=== PATIENT | female | born 1940 | race Caucasian/White ===

== ENCOUNTER 2022-09-14 01:22 | Inpatient (IN) | payer BC, OTHER ==
[~2022-09-14] VITALS: Ht 162.6 cm; Wt 56.7 kg
[2022-09-14 01:22] VITALS: BP_SYST 163
[~2022-09-14 01:22] MED LIST: CHOL100038 PO; ESOM40CA PO; IRON1CAP12 PO; LISI-209 PO
[2022-09-14] MEDS ORDERED: NACL 0.9% 1,000 ML IV ONE ×2 (01:30)
--- NOTE | 2022-09-14 01:32 | NUR ---
MD AT BEDSIDE WITH PATIENT FOR EVALUATION.
--- NOTE | 2022-09-14 01:37 | NUR ---
PT FROM HOME BIBA WITH C/O OF [facility]NCOPE EPISODE. PER EMT, PT WAS FOUND ON FLOOR BY FAMILY. PT DOES NOT REMEMBER PASSING OUT. HX OF DEMENTIA. PT DENIES PAIN AT THIS TIME. NO TRUAMA VISIABLE TO HEAD OR NECK. PT A&O X2, PERSON AND PLACE. SAFETY PRECAUTIONS IN PLACE AND CONNECTED TO MONITOR.
--- NOTE | 2022-09-14 01:40 | NUR ---
PT TO CT VIA GURNEY ACCOMPANIED BY RADIOLOGY AND EMT.
[2022-09-14 01:45] LABS: BASOPHILS % (AUTO) 0.4 % (0.0-2.0); EOSINOPHILS % (AUTO) 0.3 % (0.0-4.0); HEMATOCRIT 33.9 % (36-48); HEMOGLOBIN 11.7 g/dL (12.0-16.0); LYMPHOCYTES # (AUTO) 0.5 K/uL (1.0-5.5); LYMPHOCYTES % (AUTO) 7.8 % (20.5-51.5); MEAN CORPUSCULAR HEMOGLOBIN 33 pg (27-31); MEAN CORPUSCULAR HGB CONC 34 % (32-36); MEAN CORPUSCULAR VOLUME 97 fL (79.0-98.0); MONOCYTES % (AUTO) 14.8 % (1.7-9.3); NEUTROPHILS # (AUTO) 5.2 K/uL (1.8-7.7); NEUTROPHILS % (AUTO) 76.7 % (40.0-70.0); PLATELET COUNT (AUTO) 180 K/uL (130-430); RED BLOOD CELL COUNT(AUTO) 3.51 MIL/uL (4.2-6.2); RED CELL DISTRIBUTION WIDTH 13.8 % (9.0-15.0); WHITE BLOOD COUNT (AUTO) 6.7 K/uL (4.8-10.8)
--- NOTE | 2022-09-14 02:00 | NUR ---
PT BACK FROM RADIOLOGY VIA [facility] ACCOMPANIED BY STAFF.
[2022-09-14 02:06] LABS: ANION GAP 10 (5-15); CALCIUM 8.6 mg/dL (8.4-11.0); CHLORIDE 99 mmol/L (98-107); CREATININE 1.28 mg/dL (0.55-1.30); GLUCOSE 116 mg/dL (70-99); UREA NITROGEN, BLOOD 20 mg/dL (8-21)
[2022-09-14 02:13] LABS: ALANINE AMINOTRANSFERASE 13 U/L (12-78); ALBUMIN 3.7 g/dL (3.4-4.8); ASPARTATE AMINOTRANSFERASE 17 U/L (10-37); TOTAL BILIRUBIN 0.3 mg/dL (0.0-1.0)
--- NOTE | 2022-09-14 02:27 | NUR ---
COVID SWAB COLLECTED AND SENT TO LAB.
--- NOTE | 2022-09-14 03:09 | NUR ---
INFLUENZA SWAB COLLECTED AND SENT TO LAB.
--- NOTE | 2022-09-14 03:55 | NUR ---
PT MOVED FROM BED 2 TO BED 8 FOR NEGATIVE PRESSURE. SAFETY PRECAUTIONS IN PLACE AND CONNECTED TO MONITOR. TEMPORAL TEMP 100.0. MD MADE AWARE.
[2022-09-14] MEDS ORDERED: ACETAMINOPHEN 500 MG TABLET PO ONE (04:00)
[2022-09-14 04:03] LABS: BILIRUBIN,URINE NEGATIVE (NEGATIVE); BLOOD, URINE NEGATIVE (NEGATIVE); CLARITY/URINE CLEAR (CLEAR); COLOR,URINE YELLOW (YELLOW); GLUCOSE,URINE NEGATIVE (NEGATIVE); KETONES,URINE NEGATIVE (NEGATIVE); LEUKOCYTE ESTERASE ,URINE TRACE (NEGATIVE); NITRITE, URINE NEGATIVE (NEGATIVE); PROTEIN URINE NEGATIVE (NEGATIVE); UROBILINOGEN,URINE 0.2 (0.2-1.0)
[2022-09-14 04:09] LABS: BACTERIA,URINE None Seen /HPF (None Seen); MUCUS,URINE None Seen /LPF (None Seen); RBC,URINE 0-3 /HPF (0-3)
--- NOTE | 2022-09-14 04:32 | NUR ---
ATTEMPTED TO CONTACT SON FOR MEDICATION LIST. PHONE NUMBER ON FILE DOES NOT WORK.
[2022-09-14] MEDS ORDERED: ACETAMINOPHEN 325 MG TABLET PO PRN (04:45)
[2022-09-14] MEDS ORDERED: POTASSIUM CHLORIDE 20 MEQ in D5/0.45 NS 1,000 ML IV SCH (04:45)
--- NOTE | 2022-09-14 04:51 | NUR ---
Admit bed requested Patient will be admitted to care of Admitted to MS unit. Diagnosis Covid 19 Viral Infection Inpatient (Yes or No) yes Observation (Yes or No) no Orientation concerns or request close to nursing station (Yes or No) yes Covid Status positive On vent or bipap no Isolation requirements no Needs a sitter no From Home (Yes or if No enter name of facility) yes Requires Dialysis (Yes or No) no Med Rec Completed (Yes of No) pending
[2022-09-14] MEDS ORDERED: AZITHROMYCIN 500 MG/VIAL (ZITHROMAX) IV ONE (06:21)
[2022-09-14] MEDS: cefTRIAXone 1 GM IVPB PREMIX 50 ML IV SCH (06:32)
[2022-09-14] MEDS: AZITHROMYCIN 500 MG in NS 250 ML IV SCH (06:33)
--- NOTE | 2022-09-14 07:20 | NUR ---
report given to Arabella TAYLOR and Viktoriya TABARESN to assume all care. all questions and concerns addressed at this point.
--- NOTE | 2022-09-14 08:00 | NUR ---
Pt is restless and pacing room with diarrhea on thighs. Assisted pt to cleanse and use bedside commode. Pt reassured of admission status covid diagnosis. Pt is aaox2 with signs of dementia.
--- NOTE | 2022-09-14 09:00 | NUR ---
Pt blood pressure elevated 184/98 reported to admissions MD, medicated per MD order.
--- NOTE | 2022-09-14 09:15 | NUR ---
Pt ate 100 % reg diet , assisted to restroom. Pt with diarrhea related to Covid diagnosis.
[2022-09-14] MEDS: amLODIPine BESYLATE 10 MG TABLET PO SCH ×2 (09:20→12:47)
[2022-09-14] MEDS ORDERED: TRAM50TA2 PO (10:32)
[2022-09-14] MEDS ORDERED: DONE10TA4 PO (10:32)
[2022-09-14] MEDS ORDERED: SIMV-43 PO (10:32)
--- NOTE | 2022-09-14 10:32 | NUR ---
CONSULT ID COVID DR SAUER [phone] DR CADE CANAL DRIVER S/W LYNDSEY GARCIA
--- NOTE | 2022-09-14 10:42 | NUR ---
PT WAS W/C'D IN FROM ER WITH COVID+. SOB AND COUGH X 2 WKS. PT WAS ALERT AND AWAK X 2. UNABLE TO STATE DAY. PER PT REQUESTED, HER GRANDSON WAS CALLED BUT NO ONE PICKUP.
--- NOTE | 2022-09-14 11:21 | NUR ---
Patient will be admitted to [facility]. Admitted to MEDSURG unit. Will go to room 122. Belongings list completed. Complete and up to date summary report printed. SBAR report to be given at bedside with opportunity for questions.
--- NOTE | 2022-09-14 11:37 | NUR ---
Received very minimal report from BRANDON Bates, he was only able to tell me patient identifiers, pt. is covid + and that pt. has a chief complaint of sob, this was the only report Paulo gave. Pt. is confused, ambulating around the room, no signs of acute distress, fall precautions in place and attempted to educate on fall precautions but pt. is confused at baseline AOx2.
[2022-09-14] MEDS ORDERED: ASCORBIC ACID 500 MG TABLET PO ONE (12:00)
[2022-09-14] MEDS ORDERED: LOSARTAN POTASSIUM 50 MG TABLET (COZAAR) PO ONE (12:15)
[2022-09-14 12:41] VITALS: BP_SYST 167
[2022-09-14] MEDS: DECADRON 4 MG TABLET PO SCH (12:46)
[2022-09-14] MEDS: POTASSIUM CHLORIDE 20 MEQ in D5/0.45 NS 1,000 ML IV SCH (12:48)
[2022-09-14 12:50] VITALS: BP_SYST 167
[2022-09-14] MEDS ORDERED: HALOPERIDOL LACTATE 5 MG/ML VIAL IM ONE (13:30)
--- NOTE | 2022-09-14 13:30 | NUR ---
Restraints initiated, pt. is combative, pulling out iv lines and a danger to herself, bilateral soft wrist restraints applied. Fall precautions in place, called pt's family but was unable to leave a vm or contact anyone.
[2022-09-14 18:17] VITALS: BP_SYST 152
[2022-09-14 20:00] VITALS: BP_SYST 159
--- NOTE | 2022-09-14 20:02 | NUR ---
Closing Note Full SBAR report given to BRANDON Aguilar, pt. is currently sleeping comfortably in bed, bilateral wrist restraints are in place, fall precautions in place.
[2022-09-15] VITALS: BP_SYST 157
[2022-09-15] MEDS: SIMVASTATIN 20 MG TABLET PO SCH ×2 (00:15→21:47)
[2022-09-15] MEDS: ENOXAPARIN SODIUM 40 MG/0.4 ML SYRINGE SUBCUT SCH ×2 (00:15→21:47)
[2022-09-15] MEDS: LOSARTAN POTASSIUM 50 MG TABLET (COZAAR) PO SCH ×3 (00:16→21:45)
[2022-09-15] MEDS: ASCORBIC ACID 500 MG TABLET PO SCH ×3 (00:17→21:45)
[2022-09-15] MEDS: POTASSIUM CHLORIDE 20 MEQ in D5/0.45 NS 1,000 ML IV SCH ×2 (00:18→19:01)
[2022-09-15] MEDS: cefTRIAXone 1 GM IVPB PREMIX 50 ML IV SCH (04:45)
[2022-09-15] MEDS ORDERED: HALOPERIDOL LACTATE 5 MG/ML VIAL IM ONE ×3 (06:15→07:00)
[2022-09-15] MEDS: AZITHROMYCIN 500 MG in NS 250 ML IV SCH (06:21)
[2022-09-15] MEDS: DECADRON 4 MG TABLET PO SCH (19:01)
[2022-09-15 20:00] VITALS: BP_SYST 141
[2022-09-16] VITALS: BP_SYST 147
[2022-09-16] MEDS: POTASSIUM CHLORIDE 20 MEQ in D5/0.45 NS 1,000 ML IV SCH ×3 (02:52→23:03)
[2022-09-16] MEDS: cefTRIAXone 1 GM IVPB PREMIX 50 ML IV SCH (05:55)
[2022-09-16 07:20] LABS: BASOPHILS % (AUTO) 0.1 % (0.0-2.0); EOSINOPHILS % (AUTO) 0.1 % (0.0-4.0); HEMATOCRIT 36.5 % (36-48); HEMOGLOBIN 12.3 g/dL (12.0-16.0); LYMPHOCYTES # (AUTO) 0.4 K/uL (1.0-5.5); LYMPHOCYTES % (AUTO) 4.7 % (20.5-51.5); MEAN CORPUSCULAR HEMOGLOBIN 33 pg (27-31); MEAN CORPUSCULAR HGB CONC 34 % (32-36); MEAN CORPUSCULAR VOLUME 96 fL (79.0-98.0); MONOCYTES # (AUTO) 0.4 K/uL (0.0-1.0); MONOCYTES % (AUTO) 4.5 % (1.7-9.3); NEUTROPHILS # (AUTO) 8.5 K/uL (1.8-7.7); NEUTROPHILS % (AUTO) 90.6 % (40.0-70.0); PLATELET COUNT (AUTO) 180 K/uL (130-430); RED BLOOD CELL COUNT(AUTO) 3.79 MIL/uL (4.2-6.2); WHITE BLOOD COUNT (AUTO) 9.4 K/uL (4.8-10.8)
[2022-09-16 07:45] LABS: ANION GAP 10 (5-15); CALCIUM 8.9 mg/dL (8.4-11.0); CHLORIDE 106 mmol/L (98-107); CREATININE 1.03 mg/dL (0.55-1.30); GLUCOSE 129 mg/dL (70-99); UREA NITROGEN, BLOOD 25 mg/dL (8-21)
[2022-09-16] MEDS ORDERED: FAMOTIDINE 20 MG TABLET PO ONE (11:30)
[2022-09-16 11:57] LABS: LACTATE DEHYDROGENASE 209 U/L (81-234)
[2022-09-16 11:58] LABS: C-REACTIVE PROTEIN QUANT < 0.2 mg/dL (0-0.5)
[2022-09-16 12:16] VITALS: BP_SYST 136
[2022-09-16] MEDS: ASCORBIC ACID 500 MG TABLET PO SCH ×2 (17:14→22:59)
[2022-09-16] MEDS: LOSARTAN POTASSIUM 50 MG TABLET (COZAAR) PO SCH ×2 (17:15→22:59)
[2022-09-16] MEDS: amLODIPine BESYLATE 10 MG TABLET PO SCH (17:15)
[2022-09-16] MEDS: AZITHROMYCIN 500 MG in NS 250 ML IV SCH (17:16)
[2022-09-16 17:47] VITALS: BP_SYST 191
[2022-09-16 21:00] VITALS: BP_SYST 168
[2022-09-16] MEDS: SIMVASTATIN 20 MG TABLET PO SCH (22:59)
[2022-09-16] MEDS: ENOXAPARIN SODIUM 40 MG/0.4 ML SYRINGE SUBCUT SCH (23:00)
[2022-09-17 04:10] VITALS: BP_SYST 170
[2022-09-17] MEDS: cloNIDine HCL 0.1 MG TABLET PO PRN ×2 (04:28→23:51)
[2022-09-17] MEDS: cefTRIAXone 1 GM IVPB PREMIX 50 ML IV SCH (04:45)
[2022-09-17] MEDS: AZITHROMYCIN 500 MG in NS 250 ML IV SCH (06:00)
--- NOTE | 2022-09-17 06:30 | NUR ---
no distress noted, comfort maintained, patient anxious, pulling out IV for abx, patient attempting to leave unit, patient oriented to self, only, no iv site upon shift, resited to right wrist 20g IV, IV fluids infusing while patient has iv access, patient pulled out IV access, patient confused and attempting to leave unit during shift change, unable to give am abx, on-coming shift informed patient needs a new iv access and am IV abx
--- NOTE | 2022-09-17 07:00 | NUR ---
Report received from shift supervisor film processing RN for continuity of care. Patient in stable condition. No distress noted.
[2022-09-17 08:00] VITALS: BP_SYST 142
[2022-09-17] MEDS: ASCORBIC ACID 500 MG TABLET PO SCH ×2 (08:32→21:31)
[2022-09-17] MEDS: FAMOTIDINE 20 MG TABLET PO SCH (08:32)
[2022-09-17] MEDS: amLODIPine BESYLATE 10 MG TABLET PO SCH (08:34)
[2022-09-17] MEDS: LOSARTAN POTASSIUM 50 MG TABLET (COZAAR) PO SCH ×2 (08:35→21:32)
[2022-09-17] MEDS: POTASSIUM CHLORIDE 20 MEQ in D5/0.45 NS 1,000 ML IV SCH (13:57)
--- NOTE | 2022-09-17 19:00 | NUR ---
Report given to security shift manager RN for continuity of care. Patient stable.
[2022-09-17 19:15] VITALS: BP_SYST 179
--- NOTE | 2022-09-17 19:15 | NUR ---
PM ASSESSMENT; -Pt is a/o2, resting in bed comfortably. Pt denies any chest pain,pain,sob,or any acute distress. IV site patent, no ss/ any infiltration noted. Discussed poc,all safety measures, not to get OOB to use call light for assistance or if experiencing any chest pain,sob,or any acute distress, pt just nodded her head. Martínez soft wrist restraint in place, good circulation, no s/s any injury noted. Bed alarmed, side railsx3,call light w/in reach. Maintains droplet contact isolation entire time. Will cont to monitor pt.
[2022-09-17] MEDS: SIMVASTATIN 20 MG TABLET PO SCH (21:31)
[2022-09-17] MEDS: ENOXAPARIN SODIUM 40 MG/0.4 ML SYRINGE SUBCUT SCH (21:32)
[2022-09-17] MEDS: DONEPEZIL HCL 5 MG TABLET (ARICEPT) PO SCH (21:32)
--- NOTE | 2022-09-17 23:22 | NUR ---
ROUNDS; -Pt is agitating, cursing, and attempting to swing arms while attempting to clean pt. Pt is incont of urine, gave sponge bath, changed all bedding sheet, linen, pillow case, gown, and chux, now pt is cleaned and dry. Barrier cream applied on perineal care. Bed alarmed, side railsx3,call light w/in reach. Applied jefe soft wrist restraint after cleaning pt, good circulation, no s/s any injury noted. pt refused fluid or snack after done with ADL cares. Bed alarmed, side rails x3, call light w/in reach. Maintains droplet contact isolation entire time. Will cont to
[2022-09-17 23:44] VITALS: BP_SYST 189
--- NOTE | 2022-09-18 00:10 | NUR ---
PAGED DR. ZUÑIGA REGARDING PT IS AGITATING, KICKED, BOTH LEGS WERE DANGLING ON SIDE RAILS, AND SCREAMED WHEN ATTEMPTED TO GIVE CLONIDINE 0.1MG PO ELEVATED BP 189/105, PT SPITTED BP MED AT ME. PULLED PT UP AND REPOSITIONED PT, PLACED BLANKET ON HER, PT KICKED OFF THE BLANKET. WAITING FOR MD TO RETURN CALLBACK TO GET MEDS FOR AGITATION AND IV MED FOR ELEVATED BP.
--- NOTE | 2022-09-18 00:23 | NUR ---
NOTES; NOTIFIED DR. ZUÑIGA REGARDING PT IS AGITATING, KICKING, ATTEMPTING TO GET OUT OF BED, ELEVATED BP. HALDOL 3MG IM X1 FOR AGITATION AND HYDRALAZINE 10MG IVP Q 4 PRN SBP >160.
[2022-09-18] MEDS ORDERED: HALOPERIDOL LACTATE 5 MG/ML VIAL IM ONE ×2 (00:25→00:30)
[2022-09-18] MEDS ORDERED: hydrALAZINE HCL 20 MG/ML VIAL IVP PRN (00:30)
[2022-09-18 04:30] VITALS: BP_SYST 145
--- NOTE | 2022-09-18 04:30 | NUR ---
NOTES; -Pt is resting in bed comfortably. NO s/s any acute distress noted. LD=266/73. jefe soft wrist restraint applied, good circulation, no s/s any injury noted. Cont to monitor pt.
[2022-09-18] MEDS: AZITHROMYCIN 500 MG in NS 250 ML IV SCH (04:45)
[2022-09-18] MEDS: cefTRIAXone 1 GM IVPB PREMIX 50 ML IV SCH (04:45)
[2022-09-18] MEDS: POTASSIUM CHLORIDE 20 MEQ in D5/0.45 NS 1,000 ML IV SCH ×2 (04:46→18:22)
--- NOTE | 2022-09-18 06:43 | NUR ---
CLOSING NOTES; -Pt is resting in bed comfortably. No s/s any acute distress noted. IV site patent, no ss/ any infiltration noted. Martínez soft wrist restraint in place, good circulation, no s/s any injury noted. Bed alarmed, side railsx3,call light w/in reach. Maintains droplet contact isolation entire time. will endorse to next nurse to cont care.
[2022-09-18 08:00] VITALS: BP_SYST 153
--- NOTE | 2022-09-18 08:00 | NUR ---
OPENING NOTE Patient in bed resting with eyes closed, no sign of distress or pain. Breathing is nonlabored and even, oxygen saturation 100% on room air. IV is patent and running prescribed fluids. All needs met at this time and safety checks made.
--- NOTE | 2022-09-18 09:00 | NUR ---
RESTRAINTS DISCONTINUED Per Dr Robles, restraints removed. Patient is currently calm and cooperative.
[2022-09-18] MEDS: ASCORBIC ACID 500 MG TABLET PO SCH ×2 (11:28→21:16)
[2022-09-18] MEDS: FAMOTIDINE 20 MG TABLET PO SCH (11:28)
[2022-09-18] MEDS: amLODIPine BESYLATE 10 MG TABLET PO SCH (11:28)
[2022-09-18] MEDS: LOSARTAN POTASSIUM 50 MG TABLET (COZAAR) PO SCH ×2 (11:28→21:16)
[2022-09-18 12:00] VITALS: BP_SYST 154
[2022-09-18 16:33] VITALS: BP_SYST 152
[2022-09-18 20:00] VITALS: BP_SYST 163
--- NOTE | 2022-09-18 20:13 | NUR ---
CLOSING NOTE Patient in bed resting with eyes closed, no sign of distress or pain. IV is patent and running prescribed fluids. Patient has moments of confusion where she gets out of bed and attempts to ambulate but is able to be redirected. All needs met at this time and safety checks made. Endorsed to shift supervisor nurse.
[2022-09-18] MEDS: SIMVASTATIN 20 MG TABLET PO SCH (21:16)
[2022-09-18] MEDS: DONEPEZIL HCL 5 MG TABLET (ARICEPT) PO SCH (21:16)
[2022-09-18] MEDS: ENOXAPARIN SODIUM 40 MG/0.4 ML SYRINGE SUBCUT SCH (21:17)
[2022-09-19 00:28] VITALS: BP_SYST 184
[2022-09-19] MEDS ORDERED: cefTRIAXone 1 GM IVPB PREMIX 50 ML IV ONE (04:07)
[2022-09-19] MEDS: cefTRIAXone 1 GM IVPB PREMIX 50 ML IV SCH ×2 (04:12→20:37)
--- NOTE | 2022-09-19 05:49 | NUR ---
Pt has slept throughout the entire nightclub manager. IVFs reconnected to patient. No further issues at this time.
[2022-09-19 08:00] VITALS: BP_SYST 131
--- NOTE | 2022-09-19 08:00 | NUR ---
OPENING NOTE Patient in bed resting, no sign of distress and denies pain. Assisted patient to the restroom, patient able to ambulate with nurse assist. All needs met at this time and safety checks made.
--- NOTE | 2022-09-19 08:47 | NUR ---
Discharge Planning: DCP faxed patient referral to [facility] [place], [place], [facility]. DCP to follow up.
[2022-09-19] MEDS: POTASSIUM CHLORIDE 20 MEQ in D5/0.45 NS 1,000 ML IV SCH ×2 (08:48→20:37)
[2022-09-19] MEDS: ASCORBIC ACID 500 MG TABLET PO SCH ×2 (09:25→20:36)
[2022-09-19] MEDS: amLODIPine BESYLATE 10 MG TABLET PO SCH (09:25)
[2022-09-19] MEDS: FAMOTIDINE 20 MG TABLET PO SCH (09:25)
[2022-09-19] MEDS: LOSARTAN POTASSIUM 50 MG TABLET (COZAAR) PO SCH ×2 (09:26→20:37)
[2022-09-19 12:17] VITALS: BP_SYST 147
--- NOTE | 2022-09-19 12:45 | NUR ---
ROUNDS Spoke with patient's grandson, Jamie Aguila [phone] who states he is the power of head correction officer. Patient confirmed that Jamie is her grandson and gave permission for me to speak with him. Patient was unsure what a power of head correction officer was at this time. Jamie states that the patient has a 24hr nurse that lives with her and wishes for the patient to return home, not to a SNF. Informed high risk case manager Daniella who stated she would speak with Jamie to confirm.
--- NOTE | 2022-09-19 14:47 | NUR ---
Dietitian Recommendations * Liberalize diet to Regular * Add Ensure BID (700 kcal/day, 40 gm protein/day) * Encourage increase PO intakes LP, MS, RD Please refer to Nutrition Assessment for details. Addendum: 09/19/22 at [address] Amended: Links added.
--- NOTE | 2022-09-19 16:30 | NUR ---
IV REMOVAL Patient accidentally pulled out IV. No active bleeding. MD aware, no access required at this time.
[2022-09-19 16:59] VITALS: BP_SYST 126; BP_SYST 146
--- NOTE | 2022-09-19 19:33 | NUR ---
CLOSING NOTE Patient in bed resting after eating dinner, no sign of distress and patient denies pain. Patient has attempted to get out of bed and ambulate on her own, educated the patient on fall precautions, verbalized understanding. Patient is up to date on her plan of care, verbalized understanding. Breathing is nonlabored and even, on room air. All needs met at this time and safety checks made. Endorsed to weight shifter nurse.
[2022-09-19 20:00] VITALS: BP_SYST 145
[2022-09-19] MEDS: SIMVASTATIN 20 MG TABLET PO SCH (20:36)
[2022-09-19] MEDS: DONEPEZIL HCL 5 MG TABLET (ARICEPT) PO SCH (20:37)
[2022-09-19] MEDS: ENOXAPARIN SODIUM 40 MG/0.4 ML SYRINGE SUBCUT SCH (20:37)
[2022-09-20 00:21] VITALS: BP_SYST 137
[2022-09-20 07:46] VITALS: BP_SYST 158
[2022-09-20] MEDS: FAMOTIDINE 20 MG TABLET PO SCH (09:40)
[2022-09-20] MEDS: ASCORBIC ACID 500 MG TABLET PO SCH (09:40)
[2022-09-20] MEDS: LOSARTAN POTASSIUM 50 MG TABLET (COZAAR) PO SCH (09:40)
[2022-09-20] MEDS: amLODIPine BESYLATE 10 MG TABLET PO SCH (09:41)
--- NOTE | 2022-09-20 09:49 | NUR ---
Patient lives at home w/ 24 hr caregiver. When patient is discharged, her grandson, Jamie Aguila, , will pick her up and take her home. He will ensure the caregiver is in place at home.
[2022-09-20 13:47] VITALS: BP_SYST 146
[2022-09-20 15:44] VITALS: BP_SYST 118
--- NOTE | 2022-09-20 16:35 | NUR ---
If patient is discharged on the weekend please call Charles Allison, her nephew, to peanut picker the patient [phone]
[2022-09-20 17:46] VITALS: BP_SYST 157
--- NOTE | 2022-09-20 18:00 | NUR ---
Called and spoke to Kash and went over discharge instructions over the phone. Questions answered and concerns addressed over the phone. Grandson verbalized understanding of d/c teachings and follow up appointment. Mary Kay care provided and diaper changed before sending pt to the front lobby to meet grandson. Belongings returned to pt.
--- NOTE | 2022-09-20 18:45 | NUR ---
Pt off the unit, assisted by MILKING SYSTEM INSTALLER via wheelchair to the front lobby to be picked up by rod.
== END 2022-09-20 18:46 | disposition home or self-care (01) | DRG 177 ==
LOC: SED 01:22 → SMU 04:39
PROVIDERS: ADMIT Family Medicine; ATTEND Family Medicine
DX: U07.1 COVID-19 (principal); G93.41 Metabolic encephalopathy; I10 Essential (primary) hypertension; E78.5 Hyperlipidemia, unspecified; F03.A0 Unspecified dementia, mild, without behavioral disturbance, psychotic disturbance, mood disturbance, and anxiety; M54.9 Dorsalgia, unspecified; G89.29 Other chronic pain; D64.9 Anemia, unspecified
CPT/HCPCS: 36415; 70450-TC; 71045; 76376; 80048; 80053; 81000; 82550; 82962; 83615; 84484; 85025; 86140; 87040; 87086; 93005; 96360; 99285; J0360; J0456; J0696; J1630; J1650; J3480; J7050; J8540

== ENCOUNTER 2022-10-20 18:43 | Inpatient (IN) | payer OTHER ==
[~2022-10-20] VITALS: Ht 157.5 cm; Wt 45.4 kg
[2022-10-20 18:43] VITALS: BP_SYST 195
[~2022-10-20 18:43] MED LIST changes: +DONE10TA4 PO; +SIMV-43 PO; +TRAM50TA2 PO
--- NOTE | 2022-10-20 18:44 | NUR ---
BROUGHT IN BY [facility], PLACED IN BED #6 AND TRIAGED. REPORT GIVEN TO CLINICAL RESEARCH MANAGEMENT ASSOCIATE.
--- NOTE | 2022-10-20 19:00 | NUR ---
Patient brought by ALS from Home for unwitnessed fall at home. Patient lives at home with cloth carrier. Patient has hx of dementia, hld, anxiety, hypertension. Patient is AOx1 to name only. Patient is not cooperative and yelling "get the hell out of my room." Patient is trying to stand up off of gurney and leave. Unable to redirect patient. MD notified.
--- NOTE | 2022-10-20 19:21 | NUR ---
PT WAS TO BE PUT ON COMMERCIAL MAINTENANCE TECHNICIAN, HOWEVER PT RESISTED AND TRIED TO RIP THEM OFF. RN NOTIFIED
--- NOTE | 2022-10-20 19:48 | NUR ---
PRATIBHA BOLANOS POA
--- NOTE | 2022-10-20 20:12 | NUR ---
PHLEB AT BEDSIDE ATTEMPTING TO DRAW PATIENT'S BLOOD. PATIENT IS RESISTANT TO BLOOD DRAW AND ATTEMPTING TO SCRATCH SAFETY AND SECURITY MANAGER. ACTUARIAL ASSISTANT AT BEDSIDE FOR PELVIC XRAY. PATIENT ATTEMPTING TO GET OUT OF BED AND KICKING STAFF. MD NOTIFIED. PATIENT PLACED IN SOFT BILATERAL WRIST RESTRAINTS.
[2022-10-20] MEDS ORDERED: DIPHENHYDRAMINE INJ 50 MG/ML VIAL IM ONE (20:30)
[2022-10-20] MEDS ORDERED: HALOPERIDOL LACTATE 5 MG/ML VIAL IM ONE (20:30)
--- NOTE | 2022-10-20 20:35 | NUR ---
# 20 gauge angiocath placed to LAC. Use of asceptic technique. Opsite placed over site. Blood return noted. Blood for lab drawn from site. Flushed with 10 cc of normal saline. No evidence of infiltration noted. Patient tolerated well.
[2022-10-20] MEDS ORDERED: DIPHENHYDRAMINE INJ 50 MG/ML VIAL IVP ONE (20:45)
[2022-10-20] MEDS ORDERED: HALOPERIDOL LACTATE 5 MG/ML VIAL IVP ONE (20:45)
[2022-10-20 20:58] LABS: BASOPHILS % (AUTO) 0.2 % (0.0-2.0); HEMATOCRIT 40.2 % (36-48); HEMOGLOBIN 13.1 g/dL (12.0-16.0); LYMPHOCYTES % (AUTO) 8.3 % (20.5-51.5); MEAN CORPUSCULAR HEMOGLOBIN 32 pg (27-31); MEAN CORPUSCULAR HGB CONC 33 % (32-36); MEAN CORPUSCULAR VOLUME 100 fL (79.0-98.0); MONOCYTES # (AUTO) 0.7 K/uL (0.0-1.0); MONOCYTES % (AUTO) 5.8 % (1.7-9.3); NEUTROPHILS # (AUTO) 10.3 K/uL (1.8-7.7); NEUTROPHILS % (AUTO) 85.7 % (40.0-70.0); PLATELET COUNT (AUTO) 235 K/uL (130-430); RED BLOOD CELL COUNT(AUTO) 4.03 MIL/uL (4.2-6.2); WHITE BLOOD COUNT (AUTO) 12.1 K/uL (4.8-10.8)
[2022-10-20 21:02] LABS: ANION GAP 11 (5-15); CALCIUM 9.7 mg/dL (8.4-11.0); CHLORIDE 103 mmol/L (98-107); CREATININE 1.29 mg/dL (0.55-1.30); GLUCOSE 119 mg/dL (70-99); UREA NITROGEN, BLOOD 25 mg/dL (8-21)
[2022-10-20 21:09] LABS: ALANINE AMINOTRANSFERASE 18 U/L (12-78); ALBUMIN 4.4 g/dL (3.4-4.8); ASPARTATE AMINOTRANSFERASE 35 U/L (10-37); TOTAL BILIRUBIN 0.7 mg/dL (0.0-1.0)
--- NOTE | 2022-10-20 21:17 | NUR ---
PATIENT MOVED TO BED #1 FOR CLOSE MONITORING
[2022-10-20 21:31] LABS: CKMB RELATIVE INDEX 1.4 (0.0-2.9); CREATINE KINASE MB 7.8 ng/mL (0-3.6)
[2022-10-20] MEDS ORDERED: NACL 0.9% 1,000 ML IV ONE (21:45)
[2022-10-20] MEDS ORDERED: LABETALOL HCL 20 MG/4 ML CARTRIDGE IVP ONE (21:45)
[2022-10-20] MEDS ORDERED: ASPIRIN 81 MG TAB.CHEW PO ONE (22:30)
--- NOTE | 2022-10-20 22:30 | NUR ---
DR. SHEPARD NOTIFIED OF BP 224/102, NEW ORDERS RECEIVED AND WILL BE CARRIED OUT.
--- NOTE | 2022-10-21 00:31 | NUR ---
PATIENT AGITATED TRYING TO PULL AT RESTRAINTS. KRYSTEN GIVE PRN ATIVAN FOR AGITATION
[2022-10-21] MEDS: cloNIDine HCL 0.1 MG TABLET PO PRN (00:33)
[2022-10-21] MEDS: LORazepam 1 MG TABLET PO PRN ×2 (00:33→23:43)
--- NOTE | 2022-10-21 01:07 | NUR ---
PATIENT ASLEEP RESTING .VSS WNL
--- NOTE | 2022-10-21 01:11 | NUR ---
Admit bed requested Patient will be admitted to care of . Admitted to TELEMETRY unit. Diagnosis Inpatient (Yes or No) Observation (Yes or No) N Orientation concerns or request close to nursing station (Yes or No) N Covid Status NEG On vent or bipap - Isolation requirements N Needs a sitter Y From Home (Yes or if No enter name of facility) Y Requires Dialysis (Yes or No) N Med Rec Completed (Yes of No) Y
--- NOTE | 2022-10-21 02:20 | NUR ---
Transfer to TELEMETRY via ACLS protocol. Licensed nurse present. IV present no signs or symptoms of infiltration.
[2022-10-21 02:45] VITALS: BP_SYST 125
--- NOTE | 2022-10-21 04:26 | NUR ---
Consultation Paged Reason for Consultation: elevated trop Was consult called: Y Person who was notified: Sidra Consulting Physician: Dr. Santizo Ordering Physician: Dr. Steel
--- NOTE | 2022-10-21 05:54 | NUR ---
Consultation Paged Reason for Consultation: dementia Was consult called: Y Person who was notified: left a message to the office of Dr. Harris Consulting Physician: Dr. Harris Ordering Physician: Dr. Steel
--- NOTE | 2022-10-21 07:35 | NUR ---
Morning Rounds: Patient sleeping during rounds.With sitter at the bedside. Bilateral soft wrist restraint on due to confusion and combative behavior. Not in any distress.
[2022-10-21 08:00] VITALS: BP_SYST 152
[2022-10-21 08:10] LABS: BASOPHILS % (AUTO) 0.3 % (0.0-2.0); EOSINOPHILS % (AUTO) 0.7 % (0.0-4.0); HEMATOCRIT 35.8 % (36-48); HEMOGLOBIN 11.9 g/dL (12.0-16.0); LYMPHOCYTES % (AUTO) 15.5 % (20.5-51.5); MEAN CORPUSCULAR HEMOGLOBIN 33 pg (27-31); MEAN CORPUSCULAR HGB CONC 33 % (32-36); MEAN CORPUSCULAR VOLUME 100 fL (79.0-98.0); MONOCYTES # (AUTO) 0.8 K/uL (0.0-1.0); MONOCYTES % (AUTO) 11.9 % (1.7-9.3); NEUTROPHILS # (AUTO) 4.7 K/uL (1.8-7.7); NEUTROPHILS % (AUTO) 71.6 % (40.0-70.0); PLATELET COUNT (AUTO) 183 K/uL (130-430); RED BLOOD CELL COUNT(AUTO) 3.59 MIL/uL (4.2-6.2); RED CELL DISTRIBUTION WIDTH 13.8 % (9.0-15.0); WHITE BLOOD COUNT (AUTO) 6.5 K/uL (4.8-10.8)
[2022-10-21 08:42] LABS: ANION GAP 10 (5-15); CALCIUM 8.9 mg/dL (8.4-11.0); CHLORIDE 107 mmol/L (98-107); CREATININE 0.94 mg/dL (0.55-1.30); GLUCOSE 93 mg/dL (70-99); UREA NITROGEN, BLOOD 25 mg/dL (8-21)
[2022-10-21 09:02] LABS: ALANINE AMINOTRANSFERASE 15 U/L (12-78); ALBUMIN 3.4 g/dL (3.4-4.8); ASPARTATE AMINOTRANSFERASE 28 U/L (10-37); TOTAL BILIRUBIN 0.7 mg/dL (0.0-1.0)
[2022-10-21] MEDS: traMADol HCL HCL 50 MG TABLET (ULTRAM) PO SCH ×3 (09:40→20:32)
--- NOTE | 2022-10-21 09:40 | NUR ---
POA: SPOKE TO PRATIBHA BOLANOS DESIGNATED POA,REQUESTED CODE STATUS OF PATIENT TO DNR.DR YA UPDATED PRATIBHA REGARDING PATIENT'S CONDITION.WAITING FOR HOSPITALIST TO DO ROUNDS WELL.
[2022-10-21] MEDS: lisinopriL 5 MG TABLET PO SCH (09:41)
[2022-10-21] MEDS: ASPIRIN 81 MG TABLET(ECOTRIN) PO SCH (09:41)
[2022-10-21] MEDS ORDERED: DONEPEZIL HCL 5 MG TABLET (ARICEPT) PO ONE (10:15)
[2022-10-21] MEDS ORDERED: PANTOPRAZOLE SODIUM 40 MG TAB PO ONE (10:15)
--- NOTE | 2022-10-21 11:30 | NUR ---
RN ROUNDS: RESTING. WITH SITTER AT THE BEDSIDE. WITH BILATERAL SOFT RESTRAINT ON.
--- NOTE | 2022-10-21 14:00 | NUR ---
URINE SAMPLE: PATIENT VOIDED,URINE SAMPLE SEND TO LAB.
[2022-10-21 14:31] LABS: BILIRUBIN,URINE NEGATIVE (NEGATIVE); BLOOD, URINE NEGATIVE (NEGATIVE); CLARITY/URINE CLEAR (CLEAR); COLOR,URINE YELLOW (YELLOW); GLUCOSE,URINE NEGATIVE (NEGATIVE); KETONES,URINE 1+ (NEGATIVE); NITRITE, URINE NEGATIVE (NEGATIVE); PH,URINE 6.5 (5.0-8.0); PROTEIN URINE 1+ (NEGATIVE); UROBILINOGEN,URINE 0.2 (0.2-1.0)
[2022-10-21 14:45] LABS: LEUKOCYTE ESTERASE ,URINE TRACE (NEGATIVE)
[2022-10-21 14:46] LABS: BACTERIA,URINE FEW /HPF (None Seen); MUCUS,URINE None Seen /LPF (None Seen); RBC,URINE 0-3 /HPF (0-3)
--- NOTE | 2022-10-21 15:00 | NUR ---
PO MEDICATIONS: DUE PO ULTRAM GIVEN ROUTINE MEDICATIONS. NO COMPLAINED MADE.
[2022-10-21 15:54] LABS: THYROID STIMULATING HORMONE 0.47 uIu/mL (0.36-3.74)
[2022-10-21 16:22] VITALS: BP_SYST 116
--- NOTE | 2022-10-21 17:55 | NUR ---
RN NOTES: PATIENT C/O NOT FEELING WELL. VITAL SIGNS TAKEN,AFEBRILE.STABLE.
[2022-10-21 17:56] VITALS: BP_SYST 100
--- NOTE | 2022-10-21 18:38 | NUR ---
MD ROUNDS: CHANGED ADMITTING DOCTOR TO DR ZUÑIGA. CODE STATUS CHANGED TO DNR.
--- NOTE | 2022-10-21 18:39 | NUR ---
DC SOFT WRIST RESTRAINT: DC BILATERAL SOFT WRIST RESTRAINT PER DR ZUÑIGA.
[2022-10-21 20:00] VITALS: BP_SYST 156
--- NOTE | 2022-10-21 20:00 | NUR ---
RECEIVE IN BED IS ALERT TO PERSON IS TAKING TELEMETRY OFF REMINDED THAT SHE IS IN HOSPITAL
[2022-10-21] MEDS: MIRTAZAPINE 15 MG TABLET PO SCH (20:32)
[2022-10-21] MEDS: MEGESTROL ACETATE 400 MG/10 ML UDC PO SCH (20:33)
[2022-10-21] MEDS: QUEtiapine FUMARATE 25 MG TABLET PO SCH (20:33)
[2022-10-21] MEDS: SIMVASTATIN 20 MG TABLET PO SCH (20:33)
[2022-10-21] MEDS: CALCIUM CARBONATE/VITAMIN D3 1 TAB TABLET PO SCH (20:33)
[2022-10-21] MEDS: ENOXAPARIN SODIUM 40 MG/0.4 ML SYRINGE SUBCUT SCH (20:34)
[2022-10-21] MEDS ORDERED: CALCIUM 600/VIT D PO SCH (21:00)
[2022-10-21] MEDS ORDERED: QUEtiapine FUMARATE 25 MG TABLET PO SCH (21:00)
[2022-10-21] MEDS: KCL 20 mEq in D5/0.45NS 1000mL 1,000 ML IV SCH (21:37)
[2022-10-22] VITALS (7 sets, daily range): BP systolic 102–235
--- NOTE | 2022-10-22 | NUR ---
TAKING TELEMETRY OFF TRYING TO GET OOB BED ALARM IS ON HAD ALL PO MEDICATION ORDERED REORIENT TO ROOM AND SURROUNDINGS NEEDS CONSTANT OBSERVATION
--- NOTE | 2022-10-22 02:29 | NUR ---
IS CALLING FOR DORYS REORIENT TO SURROUNDINGS
--- NOTE | 2022-10-22 04:45 | NUR ---
PAGED DOCTOR ZUÑIGA
--- NOTE | 2022-10-22 05:10 | NUR ---
2ND PAGED FOR DOCTOR ZUÑIGA
[2022-10-22 06:38] LABS: ANION GAP 9 (5-15); CALCIUM 8.8 mg/dL (8.4-11.0); CHLORIDE 106 mmol/L (98-107); CREATININE 1.09 mg/dL (0.55-1.30); GLUCOSE 89 mg/dL (70-99); UREA NITROGEN, BLOOD 23 mg/dL (8-21)
[2022-10-22 06:53] LABS: ALANINE AMINOTRANSFERASE 21 U/L (12-78); ALBUMIN 3.5 g/dL (3.4-4.8); ASPARTATE AMINOTRANSFERASE 28 U/L (10-37); THYROID STIMULATING HORMONE 0.68 uIu/mL (0.36-3.74); TOTAL BILIRUBIN 0.6 mg/dL (0.0-1.0)
--- NOTE | 2022-10-22 07:30 | NUR ---
Morning Rounds: Patient lying in bed.Calm this time. Iv fluids running at right forearm intact. Bed locked at lowest position. Condition guarded.
[2022-10-22] MEDS: KCL 20 mEq in D5/0.45NS 1000mL 1,000 ML IV SCH ×3 (08:55→20:26)
[2022-10-22] MEDS: MEGESTROL ACETATE 400 MG/10 ML UDC PO SCH ×2 (09:02→20:20)
[2022-10-22] MEDS: CALCIUM CARBONATE/VITAMIN D3 1 TAB TABLET PO SCH ×2 (09:02→20:20)
[2022-10-22] MEDS: CHOLECALCIFEROL (VITAMIN D3) 5,000 UNIT TABLET PO SCH (09:02)
[2022-10-22] MEDS: lisinopriL 5 MG TABLET PO SCH (09:03)
[2022-10-22] MEDS: ASPIRIN 81 MG TABLET(ECOTRIN) PO SCH (09:04)
[2022-10-22] MEDS: traMADol HCL HCL 50 MG TABLET (ULTRAM) PO SCH ×3 (09:04→20:21)
[2022-10-22] MEDS: PANTOPRAZOLE SODIUM 40 MG TAB PO SCH (09:04)
[2022-10-22] MEDS: DONEPEZIL HCL 5 MG TABLET (ARICEPT) PO SCH (09:05)
--- NOTE | 2022-10-22 09:30 | NUR ---
Pt getting out of bed: Assisted patient back to her bed.Patient very stubborn and needs a lot teachings and encouragement.Patient with Dementia and with cognitive impairment.Bed alarm on.
[2022-10-22] MEDS: LORazepam 1 MG TABLET PO PRN ×2 (11:35→20:19)
--- NOTE | 2022-10-22 11:35 | NUR ---
Ativan po: Patient agitated,due po ativan given as ordered.
--- NOTE | 2022-10-22 14:10 | NUR ---
RN ROUNDS: PATIENT SLEEPING THIS TIME. NOT IN ANY DISTRESS.
[2022-10-22] MEDS ORDERED: POTASSIUM CHLORIDE 20 MEQ/PKT PACKET PO ONE (15:00)
--- NOTE | 2022-10-22 15:29 | NUR ---
CONSULTATION PAGED REASON FOR CONSULTATION:CONFUSION WAS CONSULT CALLED?Y PERSON WHO WAS NOTIFIED:VOICEMAIL LEFT CONSULTING PHYSICIAN:CLEVELAND CARRINGTON PODIATRIST ASSISTANT SPECIALTY:PSYCHE PODIATRIST ASSISTANT PHONE NUMBER:[phone] REQUESTING PHYSICIAN:MIGUEL SAMS
--- NOTE | 2022-10-22 15:44 | NUR ---
RN ROUNDS: PATIENT UP AGAIN. DUE PO ULTRAM AND K-DUR 40MEQ POWDER GIVEN ORDERED. WITH NO PROBLEM. ASSISTED PATIENT BACK TO BED BUT HESITANT AND WAS SITTING IN THE BED WITH SUPERVISION.
--- NOTE | 2022-10-22 18:08 | NUR ---
RN ROUNDS: PATIENT SITTING ON THE CHAIR,HAVING DINNER. IV FLUIDS RUNNING. NEEDS CLOSE MONITORING FOR SAFETY REASONS. NOT IN ANY DISTRESS.
[2022-10-22] MEDS: MIRTAZAPINE 15 MG TABLET PO SCH (20:20)
[2022-10-22] MEDS: SIMVASTATIN 20 MG TABLET PO SCH (20:20)
[2022-10-22] MEDS: QUEtiapine FUMARATE 25 MG TABLET PO SCH (20:20)
[2022-10-22] MEDS: cloNIDine HCL 0.1 MG TABLET PO PRN (20:26)
[2022-10-22] MEDS: ENOXAPARIN SODIUM 40 MG/0.4 ML SYRINGE SUBCUT SCH (20:27)
[2022-10-23] VITALS (8 sets, daily range): BP systolic 107–205
--- NOTE | 2022-10-23 01:30 | NUR ---
PAGED DR. YOGESH ZUÑIGA PAGED AT THIS TIME, AWAITING CALL BACK.
--- NOTE | 2022-10-23 03:46 | NUR ---
COMMUNICATION W/ DR. YOGESH ZUÑIGA PAGED BACK AT THIS TIME, IT WAS REPORTED TO MD THAT PATIENT'S BLOOD PRESSURE REMAINS HIGH DESPITE PRN MEDICATION GIVEN TO HER FOR ELEVATED BLOOD PRESSURE. MD GAVE NEW ORDERS, ALL ORDER READ BACK, AND VERIFIED.
[2022-10-23] MEDS: hydrALAZINE HCL 20 MG/ML VIAL IVP PRN (04:06)
--- NOTE | 2022-10-23 06:50 | NUR ---
CLOSING NOTE PATIENT WAS RESTLESS MAJORITY OF THE NIGHT, SHE WAS CONFUSED, ALL REORIENTATION EFFORTS WERE UNSUCCESSFUL. CALL LIGHT IS WITHIN REACH. BED IS LOCKED AND AT THE LOWEST LEVEL. FALL, SAFETY, RESPIRATORY AND ASPIRATION PRECAUTIONS HAVE BEEN TAKEN THROUGHOUT THE SHIFT. WILL CONTINUE TO MONITOR UNTIL REPORT IS GIVEN AT BEDSIDE TO AM NURSE. PATIENT IS IN A ROOM WITHIN EYESITE OF NURSING STATION FOR CLOSE MONITORING.
--- NOTE | 2022-10-23 07:55 | NUR ---
Patient received awake and alert to self only. Noted confusion and restless upon assessment. Patient is med surg. No edema noted. Patient is incontinent gi/gu. Received patient on room air, tolerating well. patient with iv to right wrist, patent and flushing well. Skin intact.
[2022-10-23] MEDS: LORazepam 1 MG TABLET PO PRN (08:57)
[2022-10-23] MEDS: traMADol HCL HCL 50 MG TABLET (ULTRAM) PO SCH ×3 (08:58→21:44)
[2022-10-23] MEDS: DONEPEZIL HCL 5 MG TABLET (ARICEPT) PO SCH (08:59)
[2022-10-23] MEDS: lisinopriL 5 MG TABLET PO SCH (08:59)
[2022-10-23] MEDS: PANTOPRAZOLE SODIUM 40 MG TAB PO SCH (08:59)
[2022-10-23] MEDS: MEGESTROL ACETATE 400 MG/10 ML UDC PO SCH ×2 (08:59→21:43)
[2022-10-23] MEDS: CALCIUM CARBONATE/VITAMIN D3 1 TAB TABLET PO SCH ×2 (08:59→21:43)
--- NOTE | 2022-10-23 08:59 | NUR ---
Patient noted to be very anxious and agitated, BP elevated at 160's/80's. Administered ativan po.
[2022-10-23] MEDS: ASPIRIN 81 MG TABLET(ECOTRIN) PO SCH (09:00)
[2022-10-23] MEDS: CHOLECALCIFEROL (VITAMIN D3) 5,000 UNIT TABLET PO SCH (09:00)
--- NOTE | 2022-10-23 09:30 | NUR ---
Patient resting in bed more calmly, BP improved 140's/70's
[2022-10-23] MEDS: KCL 20 mEq in D5/0.45NS 1000mL 1,000 ML IV SCH ×2 (11:20→21:08)
--- NOTE | 2022-10-23 14:48 | NUR ---
Per Dr Robles, wants Dr Castillo to consult in person for psych, does not want to do tele psych Addendum: 10/23/22 at 1628 by [facility], BRANDON RN Dr Robles does not want tele psych to see patient as she will not interact with screen. Wants in person consult, possibly for outpatient. Jamie franklin spoke with and expressed wanting patient to come back home
--- NOTE | 2022-10-23 18:23 | NUR ---
OFFERED DINNER TRAY TO PATIENT, REFUSING TO EAT AT THIS TIME
[2022-10-23] MEDS: MIRTAZAPINE 15 MG TABLET PO SCH (21:43)
[2022-10-23] MEDS: SIMVASTATIN 20 MG TABLET PO SCH (21:44)
[2022-10-23] MEDS: QUEtiapine FUMARATE 25 MG TABLET PO SCH (21:44)
[2022-10-23] MEDS: ENOXAPARIN SODIUM 40 MG/0.4 ML SYRINGE SUBCUT SCH (21:45)
[2022-10-24 00:34] VITALS: BP_SYST 163
[2022-10-24] MEDS: KCL 20 mEq in D5/0.45NS 1000mL 1,000 ML IV SCH ×2 (05:21→15:43)
[2022-10-24 06:28] LABS: BASOPHILS % (AUTO) 0.4 % (0.0-2.0); EOSINOPHILS # (AUTO) 0.1 K/uL (0.0-0.4); EOSINOPHILS % (AUTO) 1.7 % (0.0-4.0); HEMATOCRIT 38.3 % (36-48); HEMOGLOBIN 12.8 g/dL (12.0-16.0); LYMPHOCYTES # (AUTO) 1.2 K/uL (1.0-5.5); LYMPHOCYTES % (AUTO) 14.8 % (20.5-51.5); MEAN CORPUSCULAR HEMOGLOBIN 33 pg (27-31); MEAN CORPUSCULAR HGB CONC 33 % (32-36); MEAN CORPUSCULAR VOLUME 100 fL (79.0-98.0); MONOCYTES # (AUTO) 0.9 K/uL (0.0-1.0); MONOCYTES % (AUTO) 10.7 % (1.7-9.3); NEUTROPHILS # (AUTO) 5.8 K/uL (1.8-7.7); NEUTROPHILS % (AUTO) 72.4 % (40.0-70.0); PLATELET COUNT (AUTO) 218 K/uL (130-430); RED BLOOD CELL COUNT(AUTO) 3.84 MIL/uL (4.2-6.2); RED CELL DISTRIBUTION WIDTH 13.9 % (9.0-15.0)
--- NOTE | 2022-10-24 06:45 | NUR ---
Closing notes Pt awake, no s/s distress noted. Pt agitated and wants to get up to use bathroom. Assisted pt with bedpan and pt voided and pt went back to sleep. Bed low, locked, siderails up x4, alarm on. To endorse to AM nurse.
[2022-10-24 06:47] LABS: ANION GAP 11 (5-15); CALCIUM 8.9 mg/dL (8.4-11.0); CHLORIDE 105 mmol/L (98-107); CREATININE 0.74 mg/dL (0.55-1.30); GLUCOSE 96 mg/dL (70-99); UREA NITROGEN, BLOOD 10 mg/dL (8-21)
--- NOTE | 2022-10-24 07:32 | NUR ---
PHYSICAL THERAPY CO-SIGN The Physical Therapy Progress Notes documented by Plating Equipment Tender have been reviewed. Reviewed/Co-Signed by: Yakov Giles Documentation Done by: MICHELLE GRECO PTA Addendum: 10/24/22 at 0732 by Yakov Giles PT Amended: Links added.
[2022-10-24 08:15] VITALS: BP_SYST 145
[2022-10-24] MEDS: MEGESTROL ACETATE 400 MG/10 ML UDC PO SCH ×2 (08:52→21:14)
[2022-10-24] MEDS: traMADol HCL HCL 50 MG TABLET (ULTRAM) PO SCH ×3 (08:54→21:14)
[2022-10-24] MEDS: lisinopriL 5 MG TABLET PO SCH (08:54)
[2022-10-24] MEDS: CHOLECALCIFEROL (VITAMIN D3) 5,000 UNIT TABLET PO SCH (08:54)
[2022-10-24] MEDS: DONEPEZIL HCL 5 MG TABLET (ARICEPT) PO SCH (08:55)
[2022-10-24] MEDS: ASPIRIN 81 MG TABLET(ECOTRIN) PO SCH (08:55)
[2022-10-24] MEDS: CALCIUM CARBONATE/VITAMIN D3 1 TAB TABLET PO SCH ×2 (08:55→21:15)
[2022-10-24] MEDS: PANTOPRAZOLE SODIUM 40 MG TAB PO SCH (08:55)
[2022-10-24 11:27] VITALS: BP_SYST 151
[2022-10-24 15:26] VITALS: BP_SYST 161
--- NOTE | 2022-10-24 19:37 | NUR ---
Closing Note Full SBAR report given to RN Vanesa, Pt. is confused fall precautions in place. Spoke to both Dr. Robles and rod Jiang and agreed that pt. will be discharged at 9 am tomorrow endorsed to nightshift to notify day shift RN to have pt. ready for tomorrow at 9am.
[2022-10-24 20:00] VITALS: BP_SYST 121
[2022-10-24] MEDS: SIMVASTATIN 20 MG TABLET PO SCH (21:14)
[2022-10-24] MEDS: MIRTAZAPINE 15 MG TABLET PO SCH (21:14)
[2022-10-24] MEDS: QUEtiapine FUMARATE 25 MG TABLET PO SCH (21:14)
[2022-10-24] MEDS: ENOXAPARIN SODIUM 40 MG/0.4 ML SYRINGE SUBCUT SCH (21:15)
--- NOTE | 2022-10-24 23:58 | NUR ---
Rounds/Out of bed Bed alarm on. Pt getting out of bed. Pt confused. Pt oriented and assisted back to bed safely. Will continue to monitor. Siderails up, alarm on.
[2022-10-25 00:25] VITALS: BP_SYST 139
[2022-10-25] MEDS: LORazepam 1 MG TABLET PO PRN ×2 (00:26→22:04)
[2022-10-25] MEDS: KCL 20 mEq in D5/0.45NS 1000mL 1,000 ML IV SCH ×4 (01:30→22:07)
--- NOTE | 2022-10-25 07:02 | NUR ---
Closing notes Pt asleep, no s/s distress noted. All needs met throughout the shift. Safety maintained. Bed alarm on. To endorse to AM nurse.
--- NOTE | 2022-10-25 07:45 | NUR ---
PHYSICAL THERAPY CO-SIGN The Physical Therapy Progress Notes documented by Chain Saw Mechanic have been reviewed. Reviewed/Co-Signed by: Yakov Giles Documentation Done by: MICHELLE GRECO PTA Addendum: 10/25/22 at 0746 by Yakov Giles PT Amended: Links added.
[2022-10-25 08:00] VITALS: BP_SYST 163
--- NOTE | 2022-10-25 08:15 | NUR ---
Patient stable; eating breakfast at this time.
[2022-10-25] MEDS: DONEPEZIL HCL 5 MG TABLET (ARICEPT) PO SCH (08:23)
[2022-10-25] MEDS: CALCIUM CARBONATE/VITAMIN D3 1 TAB TABLET PO SCH ×2 (08:24→22:04)
[2022-10-25] MEDS: MEGESTROL ACETATE 400 MG/10 ML UDC PO SCH ×2 (08:24→22:03)
[2022-10-25] MEDS: traMADol HCL HCL 50 MG TABLET (ULTRAM) PO SCH ×3 (08:24→22:03)
[2022-10-25] MEDS: PANTOPRAZOLE SODIUM 40 MG TAB PO SCH (08:24)
[2022-10-25] MEDS: ASPIRIN 81 MG TABLET(ECOTRIN) PO SCH (08:24)
[2022-10-25] MEDS: CHOLECALCIFEROL (VITAMIN D3) 5,000 UNIT TABLET PO SCH (08:25)
[2022-10-25] MEDS: lisinopriL 5 MG TABLET PO SCH (08:25)
--- NOTE | 2022-10-25 08:25 | NUR ---
Scheduled medications given per order. Patient stable at this time.
[2022-10-25] MEDS: hydrALAZINE HCL 20 MG/ML VIAL IVP PRN (08:27)
--- NOTE | 2022-10-25 09:55 | NUR ---
Dietitian Recommendations * Continue regular diet, Ensure Enlive TID * Encourage good PO intake * Consider bowel regimen as no documented BM since admit (10/20) GS, MPH, RD Please refer to RD Assessment for further details. Thanks! Addendum: 10/25/22 at [address] Amended: Links added.
[2022-10-25 11:26] VITALS: BP_SYST 151
--- NOTE | 2022-10-25 12:55 | NUR ---
Patient stable at this time; resting quietly in bed with no distress note.
--- NOTE | 2022-10-25 13:39 | NUR ---
Received call from Jamie (BLU) [phone] regarding discharge. Informed that Dr. Robles has not yet seen patient today.
[2022-10-25 15:29] VITALS: BP_SYST 110
--- NOTE | 2022-10-25 15:37 | NUR ---
Scheduled medication given per order. Patient stable at this time.
--- NOTE | 2022-10-25 16:30 | NUR ---
Patient repositioned in bed; stable at this time.
[2022-10-25 21:00] VITALS: BP_SYST 129
[2022-10-25] MEDS: QUEtiapine FUMARATE 25 MG TABLET PO SCH (22:03)
[2022-10-25] MEDS: MIRTAZAPINE 15 MG TABLET PO SCH (22:04)
[2022-10-25] MEDS: SIMVASTATIN 20 MG TABLET PO SCH (22:04)
[2022-10-25] MEDS: ENOXAPARIN SODIUM 40 MG/0.4 ML SYRINGE SUBCUT SCH (22:04)
[2022-10-26] MEDS: KCL 20 mEq in D5/0.45NS 1000mL 1,000 ML IV SCH ×2 (07:30→17:18)
[2022-10-26] MEDS: CALCIUM CARBONATE/VITAMIN D3 1 TAB TABLET PO SCH (08:20)
[2022-10-26] MEDS: ASPIRIN 81 MG TABLET(ECOTRIN) PO SCH (08:20)
[2022-10-26] MEDS: DONEPEZIL HCL 5 MG TABLET (ARICEPT) PO SCH (08:20)
[2022-10-26] MEDS: lisinopriL 5 MG TABLET PO SCH (08:20)
[2022-10-26] MEDS: MEGESTROL ACETATE 400 MG/10 ML UDC PO SCH (08:21)
[2022-10-26] MEDS: CHOLECALCIFEROL (VITAMIN D3) 5,000 UNIT TABLET PO SCH (08:21)
[2022-10-26] MEDS: PANTOPRAZOLE SODIUM 40 MG TAB PO SCH (08:21)
[2022-10-26] MEDS: traMADol HCL HCL 50 MG TABLET (ULTRAM) PO SCH ×2 (08:23→15:00)
[2022-10-26] MEDS: LORazepam 1 MG TABLET PO PRN (10:07)
[2022-10-26 11:43] VITALS: BP_SYST 151
[2022-10-26 15:14] VITALS: BP_SYST 119
[2022-10-26 16:41] VITALS: BP_SYST 119
--- NOTE | 2022-10-26 17:19 | NUR ---
P)atient refused nursing care including VS check in the morning. Patient has DC order since 10/24. Called MD Robles to confirm about the dc order. dc packets all set. pending call back from MD. Robles.
== END 2022-10-26 18:30 | disposition home or self-care (01) | DRG 640 ==
LOC: SED 18:43 → STU 22:03 → SMU 10-22 13:01
PROVIDERS: ADMIT Family Medicine; ATTEND Family Medicine
DX: E86.0 Dehydration (principal); G93.41 Metabolic encephalopathy; I24.8 Other forms of acute ischemic heart disease; G30.9 Alzheimer's disease, unspecified; F02.80 Dementia in other diseases classified elsewhere, unspecified severity, without behavioral disturbance, psychotic disturbance, mood disturbance, and anxiety; G89.29 Other chronic pain; M54.9 Dorsalgia, unspecified; M81.0 Age-related osteoporosis without current pathological fracture; I34.0 Nonrheumatic mitral (valve) insufficiency; I36.1 Nonrheumatic tricuspid (valve) insufficiency; Z20.822 Contact with and (suspected) exposure to COVID-19; W18.39XA Other fall on same level, initial encounter; I10 Essential (primary) hypertension; Z66 Do not resuscitate; Z88.8 Allergy status to other drugs, medicaments and biological substances; Z79.899 Other long term (current) drug therapy; Y93.89 Activity, other specified; Y92.89 Other specified places as the place of occurrence of the external cause; Y99.8 Other external cause status
CPT/HCPCS: 36415; 71045; 73521; 80048; 80053; 81000; 82550; 82553; 83735; 84443; 84484; 85025; 93005; 93306; 96361; 96374; 96375; 97110-GP; 97116-GP; 97163-GP; 97530-GP; 99285; G0378; J0360; J1200; J1630; J1650; J7030